=== PATIENT | male | born 1950 | race Caucasian/White ===

== ENCOUNTER → 2018-05-11 | Outpatient (CLI) | payer MEDICARE, OTHER | LOC: M RAD 11:31 | DX: I73.9 Peripheral vascular disease, unspecified (principal) | CPT/HCPCS: 93926 ==

== ENCOUNTER 2021-10-11 14:23 | Outpatient (CLI) | payer MEDICARE ==
[~2021-10-11] VITALS: Ht 195.6 cm; Wt 109.0 kg
[~2021-10-11 14:23] MED LIST: LISI10TA22 PO
[2021-10-11 14:25] VITALS: BP 165/82
[2021-10-11] MEDS ORDERED: methylPREDNISolone 1,000 MG, VIAL MATE ADAPTER 1 EACH in NS 250 ML IV ONE (15:30)
[2021-10-11 15:50] VITALS: BP 136/70
== END 2021-10-11 15:50 | disposition home or self-care (01) ==
LOC: M INFU 14:23
PROVIDERS: ATTEND Psychiatry & Neurology Neurology
DX: G37.3 Acute transverse myelitis in demyelinating disease of central nervous system (principal); G05.4 Myelitis in diseases classified elsewhere
CPT/HCPCS: 96365; J2930